=== PATIENT | female | born 1990 | race African-American/Black ===

== ENCOUNTER 2020-03-15 08:16 | Emergency (ER) | payer MEDICAID, OTHER ==
[~2020-03-15] VITALS: Ht 168.9 cm; Wt 77.3 kg
[~2020-03-15 08:16] MED LIST: PREN1TAB52 PO
[2020-03-15] MEDS ORDERED: CeFAZolin 1 GM/DEXTROSE 50 ML IV ONE (09:15)
[2020-03-15] MEDS ORDERED: DEXAMETHASONE SOD PHOS 4 MG/ML 5 ML VIAL IVP ONE (09:15)
[2020-03-15 09:28] LABS: ANION GAP 6 mmol/L (8-16); CALCIUM, TOTAL 9.1 mg/dL (8.8-10.5); CARBON DIOXIDE 29 mmol/L (22-29); CHLORIDE 105 mmol/L (98-107); CREATININE 0.91 mg/dL (0.60-1.30); GLOMERULAR FILTR. RATE CALC > 60 mL/min (>60); GLUCOSE,RANDOM 98 mg/dL (70-110); POTASSIUM 3.8 mmol/L (3.5-5.1); SODIUM SERUM 140 mmol/L (136-145); UREA NITROGEN, BLOOD 13 mg/dL (7-18)
[2020-03-15 09:33] LABS: ALANINE AMINOTRANSFERASE 26 U/L (12-78); ALKALINE PHOSPHATASE 72 U/L (46-116); ASPARTATE AMINOTRANSFERASE 17 U/L (15-37); BILIRUBIN,TOTAL 0.2 mg/dL (0.1-1.0); TOTAL PROTEIN, SERUM 6.8 g/dL (6.4-8.2)
[2020-03-15 09:36] LABS: BASOPHILS % (AUTO) 0.3 % (0.0-2.0); EOSINOPHILS % (AUTO) 0.7 % (1.0-6.0); HEMATOCRIT 39.3 % (36-46); HEMOGLOBIN 13.2 g/dL (12.0-16.0); LYMPHOCYTES # (AUTO) 2.3 K/uL (1.0-4.8); LYMPHOCYTES % (AUTO) 19.2 % (22.0-44.0); MEAN CORPUSCULAR HEMOGLOBIN 32.7 pg (26.0-34.0); MEAN CORPUSCULAR HGB CONC 33.6 G/dL (31.0-37.0); MEAN CORPUSCULAR VOLUME 97 fL (80-100); MONOCYTES % (AUTO) 8.2 % (2.0-9.0); NEUTROPHILS # (AUTO) 8.6 K/uL (1.8-7.7); NEUTROPHILS % (AUTO) 71.6 % (40.0-70.0); PLATELET COUNT (AUTO) 218 K/uL (150-450); RED BLOOD CELL COUNT(AUTO) 4.03 MIL/uL (4.00-5.20); RED CELL DISTRIBUTION WIDTH 12.6 % (11.5-14.5)
[2020-03-15] MEDS ORDERED: MetroNIDAZOLE 250 MG TABLET PO ONE (10:15)
[2020-03-15] MEDS ORDERED: KETOROLAC TROMETHAMINE 30 MG/ML VIAL IVP ONE (10:30)
[2020-03-15 10:36] VITALS: BP 128/78
== END 2020-03-15 11:05 | disposition home or self-care (01) ==
LOC: EMS 08:23
DX: J02.9 Acute pharyngitis, unspecified (principal)
CPT/HCPCS: 36415; 80053; 85025; 86308; 96365; 96375; 99284; J0690; J1100; J1885

== ENCOUNTER 2024-04-17 18:59 | Emergency (ER) | payer OTHER ==
[~2024-04-17] VITALS: Ht 170.2 cm; Wt 86.4 kg
[~2024-04-17 18:59] MED LIST changes: +ACET-3385 PO; +AMOX-457 PO; +IBUP-1492 PO; -PREN1TAB52 PO
[2024-04-17 19:32] VITALS: BP 121/87; PULSE 103; RESP 18; TEMP 97.6; O2SAT 100
[2024-04-17 19:48] LABS: COVID AG,FIA SOURCE NASAL SWAB
[2024-04-17 20:04] LABS: RAPID GROUP A STREP NEGATIVE (NEGATIVE)
[2024-04-17 20:06] LABS: SARS-COV2 (COVID) ANTIGEN,FIA Negative (Negative)
[2024-04-17 20:09] LABS: APPEARANCE,URINE CLEAR (CLEAR); BILIRUBIN,URINE NEGATIVE (NEGATIVE); COLOR,URINE LIGHT ORANGE (YELLOW); GLUCOSE, URINE (UA) NEGATIVE (NEGATIVE); KETONES,URINE NEGATIVE (NEGATIVE); LEUKOCYTE ESTERASE ,URINE MODERATE (NEGATIVE); NITRATE,URINE NEGATIVE (NEGATIVE); OCCULT BLOOD,URINE MODERATE (NEGATIVE); PH,URINE 6.5 (5.0-8.0); PROTEIN,URINE TRACE mg/dL (NEGATIVE); SPECIFIC GRAVITIY, URINE 1.019 (1.003-1.030); UROBILINOGEN,URINE <=1.0 mg/dL (<=1.0)
[2024-04-17 20:14] LABS: INFLUENZA TYPE A NEGATIVE FOR TYPE A (NEGATIVE); INFLUENZA TYPE B NEGATIVE FOR TYPE B (NEGATIVE)
[2024-04-17 20:24] LABS: BACTERIA,URINE Moderate /HPF (None Seen); RBC,URINE 0-2 /HPF (0-2); SQUAMOUS EPITHELIAL CELL,UR Many /LPF (None Seen)
[2024-04-17] MEDS: LIDOCAINE 5% TRANSDERMAL PATCH TD ONE (22:54)
[2024-04-17] MEDS: LEVOFLOXACIN 250 MG TABLET PO ONE (22:54)
[2024-04-17] MEDS: ACETAMINOPHEN 500 MG TABLET PO ONE (22:54)
[2024-04-17] MEDS ORDERED: LEVO750T68 PO (23:02)
== END 2024-04-17 23:38 | disposition home or self-care (01) ==
LOC: EMS 18:59
DX: N39.0 Urinary tract infection, site not specified (principal); J02.9 Acute pharyngitis, unspecified; M54.50 Low back pain, unspecified; Z88.0 Allergy status to penicillin; Z88.1 Allergy status to other antibiotic agents; Z88.2 Allergy status to sulfonamides; Z20.822 Contact with and (suspected) exposure to COVID-19
CPT/HCPCS: 81001; 87086; 87430; 87804; 99284; Z7502; Z7610

== ENCOUNTER 2024-07-18 12:03 | Emergency (ER) | payer OTHER ==
[~2024-07-18] VITALS: Ht 167.6 cm; Wt 88.6 kg
[~2024-07-18 12:03] MED LIST changes: +LEVO750T68 PO
[2024-07-18 12:12] VITALS: BP 114/69; PULSE 90; RESP 21; TEMP 98.1; O2SAT 98
[2024-07-18 12:20] LABS: COVID AG,FIA SOURCE NASAL SWAB
[2024-07-18 12:38] LABS: INFLUENZA TYPE A NEGATIVE FOR TYPE A (NEGATIVE); INFLUENZA TYPE B NEGATIVE FOR TYPE B (NEGATIVE); SARS-COV2 (COVID) ANTIGEN,FIA Negative (Negative)
[2024-07-18] MEDS ORDERED: GUAIFDM PO (14:05)
[2024-07-18] MEDS ORDERED: BENZ-227 PO (14:05)
[2024-07-18] MEDS ORDERED: BECL10.62 IH (14:05)
[2024-07-18] MEDS ORDERED: DIPH50CA37 PO (14:05)
[2024-07-18] MEDS ORDERED: ALBU18HF12 IH (14:05)
[2024-07-18] MEDS ORDERED: ACET-2080 PO (14:05)
[2024-07-18] MEDS ORDERED: NAPR-1175 PO (14:05)
== END 2024-07-18 14:23 | disposition home or self-care (01) ==
LOC: EMS 12:04
DX: S93.402A Sprain of unspecified ligament of left ankle, initial encounter (principal); J06.9 Acute upper respiratory infection, unspecified; J20.9 Acute bronchitis, unspecified; J45.909 Unspecified asthma, uncomplicated; Z79.51 Long term (current) use of inhaled steroids; Z88.0 Allergy status to penicillin; Z88.1 Allergy status to other antibiotic agents; Z88.2 Allergy status to sulfonamides; Z20.822 Contact with and (suspected) exposure to COVID-19; X58.XXXA Exposure to other specified factors, initial encounter; Y93.89 Activity, other specified; Y92.89 Other specified places as the place of occurrence of the external cause; Y99.8 Other external cause status
CPT/HCPCS: 87804; 99284; 73610-TC; Z7502

== ENCOUNTER 2025-03-20 19:50 | Emergency (ER) | payer OTHER ==
[~2025-03-20] VITALS: Ht 170.2 cm; Wt 95.5 kg
[~2025-03-20 19:50] MED LIST changes: +ACET-2080 PO; +ALBU18HF12 IH; +BECL10.62 IH; +BENZ-227 PO; +DIPH50CA37 PO; +GUAIFDM PO; +NAPR-1175 PO
[2025-03-20 20:11] VITALS: TEMP 97.7
[2025-03-20 20:44] LABS: APPEARANCE,URINE HAZY (CLEAR); GLUCOSE, URINE (UA) NEGATIVE (NEGATIVE); LEUKOCYTE ESTERASE ,URINE NEGATIVE (NEGATIVE); NITRATE,URINE NEGATIVE (NEGATIVE); OCCULT BLOOD,URINE SMALL (NEGATIVE); SPECIFIC GRAVITIY, URINE 1.029 (1.003-1.030)
[2025-03-20 20:58] LABS: SQUAMOUS EPITHELIAL CELL,UR Few /LPF (None Seen)
[2025-03-20 21:34] LABS: PLATELET COUNT (AUTO) 311 K/uL (150-450); RED BLOOD CELL COUNT(AUTO) 4.18 MIL/uL (4.00-5.20); RED CELL DISTRIBUTION WIDTH 14.2 % (11.5-14.5); WHITE BLOOD COUNT (AUTO) 9.2 K/uL (4.5-11.0)
[2025-03-20 21:42] LABS: CALCIUM, TOTAL 8.8 mg/dL (8.8-10.5); CREATININE 0.84 mg/dL (0.60-1.30); GLOMERULAR FILTR. RATE CALC > 60 mL/min (>60); GLUCOSE,RANDOM 85 mg/dL (70-110); SODIUM SERUM 139 mmol/L (136-145); UREA NITROGEN, BLOOD 10 mg/dL (7-18)
[2025-03-20 22:03] LABS: ASPARTATE AMINOTRANSFERASE 15 U/L (15-37); HCG,QUANTITATIVE < 1 mIU/mL (0-6); TOTAL PROTEIN, SERUM 7.5 g/dL (6.4-8.2)
[2025-03-20] MEDS: DOXYCYCLINE HYCLATE 100 MG TABLET PO ONE (23:12)
[2025-03-20] MEDS: ONDANSETRON 4 MG TABLET PO ONE (23:12)
[2025-03-20] MEDS: AZITHROMYCIN 500 MG TABLET PO ONE (23:17)
[2025-03-20] MEDS: LIDOCAINE/PF 1% 2 ML VIAL IM ONE (23:18)
[2025-03-20] MEDS: CefTRIAXone SODIUM 1 GM/VIAL IM ONE (23:18)
[2025-03-20] MEDS ORDERED: ONDA-104 PO (23:25)
[2025-03-20 23:34] VITALS: BP 121/75; PULSE 84; RESP 14; O2SAT 98
== END 2025-03-20 23:36 | disposition home or self-care (01) ==
LOC: EMS 20:01
DX: R30.0 Dysuria (principal); Z20.2 Contact with and (suspected) exposure to infections with a predominantly sexual mode of transmission; Z79.51 Long term (current) use of inhaled steroids; Z88.0 Allergy status to penicillin; Z88.1 Allergy status to other antibiotic agents; Z88.2 Allergy status to sulfonamides; Z91.040 Latex allergy status
CPT/HCPCS: 99283; 80048; 80076; 81001; 83690; 84702; 85025; 36415; 96372; J0456; J0696; J3490; Q0162